=== PATIENT | female | born 1975 | race Caucasian/White ===

== ENCOUNTER 2020-07-28 16:54 | Outpatient (CLI) | payer BC, SELFPAY ==
--- NOTE | ~2020-07-28 | MR_ITS ---
EXAMINATION: MR cervical spine wo con DATE: 07/28/2020 18:21 INDICATION: Neck pain. TECHNIQUE: Magnetic resonance imaging (MRI) of the cervical spine was performed without intravenous c ontrast. Sequences included sagittal T2-weighted FSE, sagittal STIR FSE, sagittal T1-weighted FSE, ax ial MERGE, and axial T2-weighted FSE. COMPARISON: Cervical spine radiographs 08/19/2016 FINDINGS: There is hypolordosis of cervical spine. Vertebral body heights and intervertebral disc hei ghts are normal. The spinal cord signal intensity is normal. There are nodules in the thyroid measuri ng up to 5 mm, likely not clinically significant. The following disc levels are specifically discusse d: C2-C3: The disc does not extend beyond the endplate margin. There is no uncovertebral joint osteoarth ritis. There is mild left facet joint osteoarthritis. There is no neural foraminal stenosis. There is no central canal stenosis. C3-C4: There is a central extrusion. There is mild bilateral uncovertebral joint osteoarthritis. Ther e is mild bilateral facet joint osteoarthritis. There is mild right neural foraminal stenosis. There is mild central canal stenosis. C4-C5: The disc is bulging. There is mild bilateral uncovertebral joint osteoarthritis. There is mild bilateral facet joint osteoarthritis. There is mild bilateral neural foraminal stenosis. There is mi ld central canal stenosis. C5-C6: The disc does not extend beyond the endplate margin. There is no uncovertebral joint osteoarth ritis. There is mild right and severe left facet joint osteoarthritis. There is mild left neural fora carlo stenosis. There is no central canal stenosis. C6-C7: The disc is bulging. There is mild left uncovertebral joint osteoarthritis. There is mild bila teral facet joint osteoarthritis. There is no neural foraminal stenosis. There is mild central canal stenosis. C7-T1: The disc does not extend beyond the endplate margin. There is no uncovertebral joint osteoarth ritis. There is moderate right and mild left facet joint osteoarthritis. There is mild right neural f oraminal stenosis. There is no central canal stenosis. IMPRESSION: 1. Mild cervical spondylosis. Reviewed, dictated and finalized at location G. MAKER
== END 2020-07-28 16:55 ==
PROVIDERS: PCP Family Medicine; Visit Provider Internal Medicine
DX: M47.892 Other spondylosis, cervical region (principal)
CPT/HCPCS: 72141

== ENCOUNTER → 2020-09-20 13:23 | Outpatient (CLI) | payer BC, SELFPAY ==
--- NOTE | ~2020-09-20 | MM_ITS ---
EXAMINATION: MM screening [facility] BI w erendira HISTORY: Screening mammogram TECHNIQUE: Craniocaudal and mediolateral oblique 3-D tomosynthesis images were obtained and synthetic 2-D images were generated. CAD analysis was submitted and interpreted. COMPARISON: No prior mammogram is available for comparison at this institution. BREAST PARENCHYMAL COMPOSITION: The breasts are heterogeneously dense, which may obscure small masses . FINDINGS: There is no evidence of suspicious mass, calcification, or architectural distortion to sugg est malignancy in either breast. There has been no suspicious interval change. IMPRESSION: 1. No mammographic evidence of malignancy. 2. Recommend routine screening mammography in one year. BI-RADS Category 1: Negative Reviewed, dictated and finalized at location A. CAPTAIN
== END ==
PROVIDERS: PCP Family Medicine; Visit Provider Physician Assistant
DX: Z12.31 Encounter for screening mammogram for malignant neoplasm of breast (principal)
CPT/HCPCS: 77063; 77067

== ENCOUNTER → 2021-09-22 11:51 | Outpatient (CLI) | payer BC, SELFPAY ==
--- NOTE | ~2021-09-22 | US_ITS ---
EXAMINATION: US thyroid EXAM DATE: 09/22/2021 12:07 INDICATION: E04.1 - Nontoxic single thyroid nodule TECHNIQUE: Multiple grayscale and Doppler images of the thyroid were obtained (by a technologist who performed the scan) and subsequently reviewed. Individual nodules and recommendations may be reporte d in accordance with TI-RADS system as designated by the 2017 ACR White Paper TI-RADS committee. The re is no prior study for comparison. FINDINGS: The right liver lobe measures 5.3 x 1.9 x 1.6 cm, the left measuring 4.8 x 1.8 x 1.9 cm. Mildly heter ogeneous thyroid echogenicity, dimensions mildly enlarged. There are several subcentimeter thyroid no dules not likely clinically significant. IMPRESSION: Multinodular goiter. Reviewed, dictated and finalized at location B. MANAGER IMPRESSION: Multinodular goiter.
== END ==
PROVIDERS: PCP Family Medicine; Visit Provider Family Medicine
DX: E04.2 Nontoxic multinodular goiter (principal)
CPT/HCPCS: 76536

== ENCOUNTER → 2021-11-08 16:38 | Outpatient (CLI) | payer BC, SELFPAY ==
--- NOTE | ~2021-11-08 | MM_ITS ---
EXAMINATION: MM screening [facility] BI w erendira HISTORY: Screening mammogram TECHNIQUE: Craniocaudal and mediolateral oblique 3-D tomosynthesis images were obtained and synthetic 2-D images were generated. CAD analysis was submitted and interpreted. COMPARISON: 09/20/2020 BREAST PARENCHYMAL COMPOSITION: The breasts are heterogeneously dense, which may obscure small masses . FINDINGS: RIGHT BREAST: An asymmetry is present in the middle third upper breast 7 cm from the nipple on nine m ediolateral oblique view. LEFT BREAST: There is no suspicious mass, calcification, or architectural distortion to suggest malig romelia. There has been no significant interval change. IMPRESSION: 1. Right breast asymmetry. 2. Additional mammographic views and possible breast ultrasound are recommended. BI-RADS Category 0: Incomplete: Needs additional imaging evaluation. Reviewed, dictated and finalized at location A. IMPRESSION: 1. Right breast asymmetry. 2. Additional mammographic views and possible breast ultrasound are recommended . BI-RADS Category 0: Incomplete: Needs additional imaging evaluation.
== END ==
PROVIDERS: PCP Family Medicine; Visit Provider Family Medicine
DX: Z12.31 Encounter for screening mammogram for malignant neoplasm of breast (principal); R92.8 Other abnormal and inconclusive findings on diagnostic imaging of breast
CPT/HCPCS: 77063; 77067

== ENCOUNTER → 2021-11-17 08:21 | Outpatient (CLI) | payer BC, SELFPAY ==
--- NOTE | ~2021-11-17 | MMUS_ITS ---
EXAMINATION: MM diagnostic [facility] RT w erendira, US breast RT limited HISTORY: Follow-up D right breast asymmetry TECHNIQUE: Additional 3-D tomosynthesis images of the right breast were performed and synthetic 2-D i mages were generated. CAD analysis was submitted and interpreted. High resolution Limited right breas t ultrasound was performed. COMPARISON: 09/20/2020 and 11/08/2021 BREAST PARENCHYMAL COMPOSITION: The breasts are heterogenously dense, which may obscure small masses FINDINGS: MAMMOGRAPHIC FINDINGS: There are no suspicious masses, calcifications or architectural distortion in the right breast with s pot compression or mediolateral views. ULTRASOUND: Limited right breast ultrasound: At 10:00, 3 cm from the nipple there is a 5 mm cyst. There are the areola there is a 4 mm cyst. No hastings spicious masses to suggest malignancy. IMPRESSION: 1. No evidence for malignancy in the right breast. Benign findings. 2. Routine yearly screening mammogram and regular clinical breast examination are recommended. BI-RADS Category 2: Benign finding(s). Reviewed, dictated and finalized at location A. IMPRESSION: 1. No evidence for malignancy in the right breast. Benign findings. 2. Routine yearly screening mammogram and regular clinical breast examination a re recommended. BI-RADS Category 2: Benign finding(s).
== END ==
PROVIDERS: PCP Family Medicine; Visit Provider Family Medicine
DX: N60.01 Solitary cyst of right breast (principal)
CPT/HCPCS: 76642; 77061; 77065; G0279

== ENCOUNTER → 2022-06-14 13:51 | Outpatient (CLI) | payer BC, SELFPAY ==
--- NOTE | ~2022-06-14 | US_ITS ---
EXAMINATION: US carotid duplex BI DATE: 06/14/2022 14:20 INDICATION: Pulsatile tinnitus TECHNIQUE: Grayscale, color Doppler, and pulsed Doppler images of the cervical carotid arteries were obtained. The degree of vessel stenosis is placed in one of the following categories: normal, <50%, 5 0-69%, >=70% but less than near-occlusion, near-occlusion, or total occlusion. Note that percent sten osis relative to normal distal artery lumen diameter is indirectly measured from velocity measurement s as described by Con, et al. Radiology 2003; 229:340-346. Notes: Normal: Peak systolic velocity <125 centimeters/sec and no plaque <50%. Peak systolic velocity <125 ( EDV <40; ICA/CCA PSV ratio <2.0; used these factors only a tandem lesions or low cardiac output or co ntralateral disease) 50-69 %: PSV 125-230 (EDV 40-100; ratio 2-4) >= 70% but less than near occlusion: PSV greater than 230 (EDV > 100; ratio> 4.0) Near Occlusion: PSV that is variable; markedly narrowed lumen Occlusion: Absent flow on color/spectral Doppler and no lumen on barriga scale. COMPARISON: None. FINDINGS: RIGHT: The right common carotid artery (CCA) peak systolic velocity (PSV) is 134 cm/s. The right internal ca rotid artery (ICA) PSV is 97 cm/s. The right ICA end-diastolic velocity (EDV) is 18 cm/s. The right I CA/CCA PSV ratio is 0.7. The external carotid artery (ECA) PSV is 88 cm/s. There is antegrade flow in the right vertebral artery. LEFT: The left CCA PSV is 129 cm/s. The left ICA PSV is 97 cm/s. The left ICA EDV is 31 cm/s. The left ICA/ CCA PSV ratio is 0.7. The ECA PSV is 83 cm/s. There is antegrade flow in the left vertebral artery. IMPRESSION: 1. Less than 50% stenosis in the right internal carotid artery by sonographic criteria. 2. Less than 50% stenosis in the left internal carotid artery by sonographic criteria. Reviewed, dictated and finalized at location A. IMPRESSION: 1. Less than 50% stenosis in the right internal carotid artery by sonographic sp gibbons. 2. Less than 50% stenosis in the left internal carotid artery by sonographic chris villa.
== END ==
PROVIDERS: PCP Family Medicine; Visit Provider Family Medicine
DX: R51.9 Headache, unspecified (principal); H93.A9 Pulsatile tinnitus, unspecified ear; I65.23 Occlusion and stenosis of bilateral carotid arteries
CPT/HCPCS: 93880

== ENCOUNTER → 2022-06-27 15:08 | Outpatient (CLI) | payer BC, SELFPAY ==
--- NOTE | ~2022-06-27 | MR_ITS ---
EXAMINATION: MR brain IAC wo/w con DATE: 06/27/2022 16:20 INDICATION: Pulsatile tinnitus. TECHNIQUE: Magnetic resonance imaging (MRI) of the brain, brainstem, and internal auditory canals was performed without and with 18 mL MultiHance intravenous contrast. COMPARISON: Brain MRI 10/10/2017 FINDINGS: There is a focus of increased T2-weighted signal intensity in the right frontal lobe white matter, which is normal as an estimate a finding. There is no intracranial hemorrhage, acute infarcti on, or abnormal intracranial mass lesion. The ventricles are normal in size. The internal auditory ca nals and inner and middle ears are normal. The mastoid air cells are normal. The orbits are normal. T he paranasal sinuses are clear. IMPRESSION: 1. Normal brain. Reviewed, dictated and finalized at location A. AL MEDIA MANAGER IMPRESSION: 1. Normal brain.
== END ==
PROVIDERS: PCP Family Medicine; Visit Provider Physician Assistant
DX: H93.A9 Pulsatile tinnitus, unspecified ear (principal); R51.9 Headache, unspecified
CPT/HCPCS: 70553; A9577

== ENCOUNTER → 2022-07-27 08:07 | Outpatient (CLI) | payer BC, SELFPAY ==
--- NOTE | ~2022-07-27 | MR_ITS ---
MRI of the cervical spine Clinical History: Pain Technique: Axial T2-weighted and gradient images, and sagittal T1-weighted, T2-weighted, and STIR lyudmila ges were acquired. COMPARISON: 07/28/2020 Findings: There is no fracture or subluxation of the cervical spine. Osseous alignment is stable from prior exam. No significant bone marrow signal reality seen. At C2-C3, there is no significant disc bulge or herniation. No spinal canal stenosis, cord compressio n, or neural foraminal narrowing. At C3-C4, there is minimal disc bulge. No spinal canal stenosis, cord compression, or neural foramina l narrowing. At C4-C5, there is minimal disc osteophyte complex. No spinal canal stenosis, cord compression, or le ft neural foraminal narrowing. Probable minimal right neural foraminal compromise. At C5-C6, there is no significant disc bulge or herniation. No spinal canal stenosis, cord compressio n, or neural foraminal narrowing. At C6-C7, there is minimal disc bulge. No spinal canal stenosis, cord compression, or neural foramina l narrowing. No abnormal signal seen in the spinal cord. Paravertebral soft tissues are unremarkable. No preverteb ral soft tissue swelling. Impression: Minimal degenerative spondylosis, as detailed above. Probable minimal right neural foraminal narrowin g at C4-C5. Reviewed, dictated and finalized at location [] [employer] Impression: Minimal degenerative spondylosis, as detailed above. Probable minimal right jennifer ral foraminal narrowing at C4-C5.
== END ==
PROVIDERS: PCP Family Medicine; Visit Provider Family Medicine
DX: M47.812 Spondylosis without myelopathy or radiculopathy, cervical region (principal); M54.2 Cervicalgia
CPT/HCPCS: 72141

== ENCOUNTER 2022-10-25 09:56 | Outpatient (CLI) | payer BC, SELFPAY ==
--- NOTE | ~2022-10-25 | MR_ITS ---
EXAMINATION: MR venography brain DATE: 10/25/2022 12:57 INDICATION: Pulsatile tinnitus of left ear. TECHNIQUE: Magnetic resonance venography (MRV) of the head was performed without intravenous contrast . COMPARISON: Brain MRI 10/25/2022 FINDINGS: The internal cerebral veins, vein of Geovani, straight sinus, superior sagittal sinus, transverse sinus es, left occipital sinus, oblique sinuses, internal jugular veins are normal. IMPRESSION: 1. Normal head MRV. Reviewed, dictated and finalized at location A. IMPRESSION: 1. Normal head MRV.
--- NOTE | ~2022-10-25 | CT_ITS ---
EXAMINATION: CT IAC/mastoids BI wo con DATE: 10/25/2022 10:22 INDICATION: Pulsatile tinnitus of left ear. TECHNIQUE: Computed tomography (CT) of the temporal bones was performed without intravenous contrast. Automated exposure control and iterative reconstruction technique were employed. The dose-length pro duct was 358.18 mGy-cm. COMPARISON: Brain MRI 10/25/2022 FINDINGS: RIGHT TEMPORAL BONE: The internal auditory canal, cochlea, vestibule, semicircular canals, vestibular aqueduct, carotid ca nal, jugular bulb, facial nerve course, ossicles, tympanic membrane, Prussak space, scutum, external auditory canal, and mastoid air cells are normal. LEFT TEMPORAL BONE: The internal auditory canal, cochlea, vestibule, semicircular canals, vestibular aqueduct, and caroti d canal are normal. The left jugular bulb is high riding and dehiscent. The facial nerve course, ossi cles, Prussak space, scutum, external auditory canal, and mastoid air cells are normal. IMPRESSION: 1. Left-sided high riding and dehiscent jugular bulb. Reviewed, dictated and finalized at location A.
--- NOTE | ~2022-10-25 | MR_ITS ---
EXAMINATION: MR brain/brain stem wo/w con DATE: 10/25/2022 12:57 INDICATION: Pulsatile tinnitus of left ear. TECHNIQUE: Magnetic resonance imaging (MRI) of the brain and brainstem was performed without and with 18 mL MultiHance intravenous contrast. COMPARISON: Brain MRI 06/27/2022 FINDINGS: There is no intracranial hemorrhage, acute infarction, or abnormal intracranial mass lesion . The ventricles are normal in size. The orbits are normal. The paranasal sinuses are clear. The mast oid air cells are normal. The internal auditory canals and inner and middle ears are normal. IMPRESSION: 1. Normal brain. Reviewed, dictated and finalized at location A. IMPRESSION: 1. Normal brain.
--- NOTE | ~2022-10-25 | MR_ITS ---
EXAMINATION: MRA brain wo con DATE: 10/25/2022 12:57 INDICATION: Pulsatile tinnitus of left ear. TECHNIQUE: Magnetic resonance angiography (MRA) of the brain was performed without intravenous contra st with T1-weighted SPGR by the 3D [id number] technique. Maximum intensity projection 3D-reconstr uctions were obtained. COMPARISON: None. FINDINGS: The vertebral arteries are codominant. There is no significant stenosis of basilar artery or the post erior cerebral arteries. There is no significant stenosis of the intracranial internal carotid arteri es or anterior or middle cerebral arteries. Anterior communicating artery is normal. The posterior co mmunicating arteries are normal. There is no aneurysm. IMPRESSION: 1. Normal head MRA. Reviewed, dictated and finalized at location A. IMPRESSION: 1. Normal head MRA.
== END 2022-10-25 09:57 ==
PROVIDERS: PCP Family Medicine
DX: H93.A2 Pulsatile tinnitus, left ear (principal); G52.7 Disorders of multiple cranial nerves
CPT/HCPCS: 70480; 70544; 70553; A9577

== ENCOUNTER → 2022-11-14 10:23 | Outpatient (CLI) | payer BC, SELFPAY ==
--- NOTE | ~2022-11-14 | MM_ITS ---
EXAMINATION: MM screening [facility] BI w erendira HISTORY: Screening mammogram TECHNIQUE: Craniocaudal and mediolateral oblique 3-D tomosynthesis images were obtained and synthetic 2-D images were generated. CAD analysis was submitted and interpreted. COMPARISON: 11/17/2021 diagnostic right mammogram and limited right breast ultrasound 11/08/2021, 09/20/2020 bilateral screening mammogram examinations BREAST PARENCHYMAL COMPOSITION: The breasts are heterogeneously dense, which may obscure small masses . FINDINGS: There is no evidence of suspicious mass, calcification, or architectural distortion to sugg est malignancy in either breast. There has been no suspicious interval change. IMPRESSION: 1. No mammographic evidence of malignancy. 2. Recommend routine screening mammography in one year. BI-RADS Category 1: Negative Reviewed, dictated and finalized at location A.
== END ==
PROVIDERS: PCP Family Medicine; Visit Provider Obstetrics & Gynecology Gynecology
DX: Z12.31 Encounter for screening mammogram for malignant neoplasm of breast (principal)
CPT/HCPCS: 77063; 77067

== ENCOUNTER 2023-12-23 13:54 | Outpatient (CLI) | payer BC, SELFPAY ==
--- NOTE | ~2023-12-23 | MM_ITS ---
EXAMINATION: MM screening [facility] BI w erendira HISTORY: Screening mammogram TECHNIQUE: Craniocaudal and mediolateral oblique 3-D tomosynthesis images were obtained and synthetic 2-D images were generated. Bilateral rotated lateral CC views. CAD analysis was submitted and interp reted. COMPARISON: November 14, 2022 bilateral screening mammogram November 17, 2021 diagnostic right mammogram and Limited right breast ultrasound November 08, 2021 bilateral screening mammogram BREAST PARENCHYMAL COMPOSITION: There are scattered areas of fibroglandular density. FINDINGS: There is no evidence of suspicious mass, calcification, or architectural distortion to sugg est malignancy in either breast. There has been no suspicious interval change. IMPRESSION: 1. No mammographic evidence of malignancy. 2. Recommend routine screening mammography in one year. BI-RADS Category 1: Negative Reviewed, dictated and finalized at location A.
== END 2023-12-23 13:55 ==
LOC: MICIMG 13:55
PROVIDERS: PCP Family Medicine; Visit Provider Obstetrics & Gynecology Gynecology
DX: Z12.31 Encounter for screening mammogram for malignant neoplasm of breast (principal)
CPT/HCPCS: 77063; 77067

== ENCOUNTER 2024-05-13 15:46 | Outpatient (CLI) | payer BC, SELFPAY ==
--- NOTE | ~2024-05-13 | XR_ITS ---
EXAMINATION: XR abdomen/kub 1V DATE: 05/13/2024 15:57 INDICATION: Hematuria, unspecified. Right flank pain. TECHNIQUE: A supine view of the abdomen on 2 radiographs was obtained. COMPARISON: None. FINDINGS: There are no dilated loops of bowel. There are gallstones in the gallbladder. IMPRESSION: 1. No visible urolithiasis. 2. Cholelithiasis. Reviewed, dictated and finalized at location A.
== END 2024-05-13 15:47 | disposition home or self-care (01) ==
LOC: MICIMG 15:47
PROVIDERS: PCP Family Medicine; Visit Provider Family Medicine
DX: K80.20 Calculus of gallbladder without cholecystitis without obstruction (principal); R31.9 Hematuria, unspecified
CPT/HCPCS: 74018

== ENCOUNTER 2024-05-20 08:44 | Outpatient (CLI) | payer BC, SELFPAY ==
--- NOTE | ~2024-05-20 | US_ITS ---
Limited Abdominal Sonogram: Real-time sonographic imaging of the right upper quadrant was performed. Clinical History: Gallstone Findings: The liver appears normal with no evidence of mass lesion or bile duct dilatation. Main por marcel vein demonstrates normal direction of flow. The gallbladder is well distended, and contains multi ple echogenic, shadowing gallstones. No gallbladder wall thickening. The common bile duct measures 4 mm. The visualized pancreas, aorta, and IVC are unremarkable. Impression: Cholelithiasis. Reviewed, dictated and finalized at location M. Impression: Cholelithiasis.
== END 2024-05-20 08:45 | disposition home or self-care (01) ==
PROVIDERS: PCP Family Medicine; Visit Provider Family Medicine
DX: K80.20 Calculus of gallbladder without cholecystitis without obstruction (principal)
CPT/HCPCS: 76705

== ENCOUNTER 2024-12-29 15:43 | Outpatient (CLI) | payer BC, SELFPAY ==
--- NOTE | ~2024-12-29 | MM_ITS ---
EXAMINATION: MM screening [facility] BI w erendira HISTORY: Screening TECHNIQUE: Craniocaudal and mediolateral oblique 3-D tomosynthesis images were obtained and synthetic 2-D images were generated. CAD analysis was submitted and interpreted. COMPARISON: Comparison to multiple prior studies sequentially, with oldest reviewed study dated 04/2021. BREAST PARENCHYMAL COMPOSITION: Dense: The breasts are heterogeneously dense, which may obscure small masses FINDINGS: There is no evidence of suspicious mass, calcification, or architectural distortion to sugg est malignancy in either breast. There has been no suspicious interval change. IMPRESSION: 1. No mammographic evidence of malignancy. 2. Recommend routine screening mammography in one year. BI-RADS Category 1: Negative Reviewed, dictated and finalized at location B.
== END 2024-12-29 15:44 | disposition home or self-care (01) ==
PROVIDERS: PCP Family Medicine; Visit Provider Obstetrics & Gynecology Gynecology
DX: Z12.31 Encounter for screening mammogram for malignant neoplasm of breast (principal)
CPT/HCPCS: 77063; 77067

== ENCOUNTER 2025-08-01 03:43 | Emergency (ER) | payer SELFPAY ==
[2025-08-01 03:44] VITALS: RESP 24
--- NOTE | 2025-08-01 04:10 | ED.GENADULT ---
HPI - General Adult General Chief complaint: Eye Problems Stated complaint: Lac to L eyelid Time Seen by Provider: 08/01/25 04:09 History of Present Illness HPI narrative: If patient 49-year-old female who presents emergency department with chief complaint of head injury and needs medical clearance. The patient was detained by the police after an altercation per police report the patient had been drinking the patient currently denies this but is not cooperative the patient states that she does not want to be seen for the laceration above her left eyebrow does not want to be seen in the emergency department and is refusing care Related Data Home Medications ?Medication ?Instructions ?Recorded ?Confirmed ?Last Taken ?Type No Home Medications 01/13/25 01/13/25 Unknown History Allergies Allergy/AdvReac Type Severity Reaction Status Date / Time No Known Allergies Allergy Unknown Verified 01/13/25 11:11 Review of Systems Review of Systems: A 10 system review of systems was completed on the patient and is negative except for what is stated in the HPI. Nursing and ancillary documentation was reviewed. [facility] Past Medical History Medical History Migraine Cervical spondylosis BMI 30.0-30.9,adult Thyroid nodule incidentally noted on imaging study HLD (hyperlipidemia) Tear, knee, anterior cruciate ligament Torn rotator cuff (~1996) (~2000) Surgical History Surgical History H/O carpal tunnel repair History of total hysterectomy (~2013) Family History Family History Grandparent Diabetes mellitus Mother Patient's mother is in good health Sibling Papillary thyroid carcinoma Social History Social History Smoking packs per day: 1 Smoking cigarettes per day: 20.0 Years smoked: 20 Smoking pack-years: 20.00 Smoking status: Former smoker Tobacco type: cigarettes Second hand tobacco smoke exposure: No Smoking end date: 08/12/13 Alcohol intake: current Alcohol use details: seldom; socially Substance use: never Substance use type: does not use Other substance usage details: SMOKE MJ DAILY Last use: smokes MJ daily Lack of Transportation: No Lack of Food: Never True Current Housing: I Have Housing Concerned About Future Housing: No Difficulty Paying Gas/Electric Bills: No Difficulty Paying for Meds: No Currently Unemployed: No Education: Bachelor's Degree Difficulty w/ Childcare or Family Care: No Living arrangements: alone Spiritual care concerns: No Agree to blood products: Yes Exam Narrative: GENERAL: Well-appearing, well-nourished, and noncooperative shouting at staff. HEAD: Normocephalic, there is a laceration just inferior to the left eyebrow. EYES: EOMI. ENT: Nares clear, no rhinorrhea or epistaxis. Mucous membranes moist. NECK: Moves neck without difficulty CHEST: No respiratory distress will not allow for exam HEART: Will not allow for exam. ABDOMEN: Will not allow exam. EXTREMITIES: Normal range of motion has leg shackles and handcuffs on. No edema. SKIN: Warm, dry, no rash. NEURO: No focal deficits. Alert and oriented x3. Answers questions appropriately PSYCH: Non cooperative refusing care MDM Differential Diagnosis Differential Diagnosis: Head injury, facial laceration, facial fracture Patient is alert and oriented moving all extremities equally the patient is adamant that she does not want to be seen in the emergency department and does not want her laceration evaluated or potentially repaired the patient was assessed for orientation is alert oriented x3 understands that there are risks associated with this including head injury permanent disability poor cosmetic outcome and a myriad of other long-term complications. Patient expressed understanding this and continued to refuse care Discharge Plan Discharge Clinical Impression: Head injury, Laceration of eyebrow, left Patient Disposition: Left Against Medical Advice Condition: Stable Patient Language: Algerian Prescriptions: No Action No Home Medications Follow-up/Referrals: Jaswinder,MD Barbara [Primary Care Provider, Family Practice]
--- NOTE | 2025-08-01 04:38 | PC.NURSE ---
Pt ambulatory with a steady gait. Continues to refuse care, and verbally aggressive with staff and PD. Pt refused to sign AMA form.
== END 2025-08-01 04:38 | disposition left against medical advice (07) ==
LOC: ANHED 04:29
PROVIDERS: Emergency Provider Emergency Medicine; PCP Family Medicine
DX: S01.112A Laceration without foreign body of left eyelid and periocular area, initial encounter (principal); Z87.891 Personal history of nicotine dependence; W45.8XXA Other foreign body or object entering through skin, initial encounter
CPT/HCPCS: 99282